=== PATIENT | female | born 1965 | race Caucasian/White ===

== ENCOUNTER → 2019-03-08 09:19 | Outpatient (CLI) | payer OTHER, SELFPAY ==
--- NOTE | 2019-03-08 | DI.MG.S_ITS ---
BILATERAL DIGITAL SCREENING MAMMOGRAM 3D/2D WITH CAD: 03/08/2019 CLINICAL: Routine screening. Family history of breast cancer. Comparison is made to exams dated: 09/28/2017 mammogram, 09/29/2016 mammogram, and 09/05/2015 mammogram - [facility]. There are scattered fibroglandular elements in both breasts. Current study was also evaluated with a Computer Aided Detection (CAD) system. No significant masses, calcifications, or other findings are seen in either breast. There has been no significant interval change. IMPRESSION: NEGATIVE There is no mammographic evidence of malignancy. A 1 year screening mammogram is recommended. This exam was interpreted at Station ID: [id number]. NOTE: For mammograms, a report in lay terms will be sent to the patient. Approximately 15% of breast malignancies will not be visualized mammographically. In the management of a palpable breast mass, a negative mammogram must not discourage biopsy of a clinically suspicious lesion. Electronically Signed By: Noris napoles/debora:03/08/2019 21:44:47 letter sent: Normal Exam ACR BI-RADS Category 1: Negative 3341F
== END ==
PROVIDERS: Visit Provider Nurse Practitioner Family
DX: Z12.31 Encounter for screening mammogram for malignant neoplasm of breast (principal); Z80.3 Family history of malignant neoplasm of breast
CPT/HCPCS: 77063; 77067

== ENCOUNTER → 2019-12-19 13:40 | Outpatient (ROUT) | payer OTHER, SELFPAY ==
[2019-12-19 14:15] LABS: Influenza A - CEPHEID Flu A NEGATIVE (NEGATIVE); Influenza B - CEPHEID Flu B NEGATIVE (NEGATIVE)
== END ==
PROVIDERS: Visit Provider Internal Medicine
DX: R05 Cough (principal); R53.83 Other fatigue; R51 Headache
CPT/HCPCS: 87502

== ENCOUNTER → 2020-05-25 08:01 | Outpatient (CLI) | payer OTHER, SELFPAY ==
--- NOTE | 2020-05-25 | DI.MG.S_ITS ---
BILATERAL DIGITAL SCREENING MAMMOGRAM 3D/2D WITH CAD: 05/25/2020 CLINICAL: Routine screening. Family history of breast cancer. Comparison is made to exams dated: 03/08/2019 mammogram - [facility], 09/28/2017 mammogram, and 09/29/2016 mammogram - [facility]. There are scattered fibroglandular elements in both breasts. Current study was also evaluated with a Computer Aided Detection (CAD) system. No significant masses, calcifications, or other findings are seen in either breast. There has been no significant interval change. IMPRESSION: NEGATIVE There is no mammographic evidence of malignancy. A 1 year screening mammogram is recommended. This exam was interpreted at Station ID: [id number]. NOTE: For mammograms, a report in lay terms will be sent to the patient. Approximately 15% of breast malignancies will not be visualized mammographically. In the management of a palpable breast mass, a negative mammogram must not discourage biopsy of a clinically suspicious lesion. Electronically Signed By: Roldan del valle/debora:05/27/2020 09:15:27 letter sent: Normal Exam ACR BI-RADS Category 1: Negative 3341F
== END ==
PROVIDERS: Referring Provider Internal Medicine; Visit Provider Internal Medicine
DX: Z12.31 Encounter for screening mammogram for malignant neoplasm of breast (principal); Z80.3 Family history of malignant neoplasm of breast
CPT/HCPCS: 77063; 77067

== ENCOUNTER → 2020-11-18 14:43 | Outpatient (CLI) | payer OTHER, SELFPAY ==
--- NOTE | 2020-11-18 14:45 | DI.US.S_ITS ---
PROCEDURE: US PELVIC COMPLETE INDICATIONS: PMB TECHNIQUE: Real-time scanning was performed of the pelvic organs, with image documentation. Additional endovaginal scanning was necessary due to incomplete visualization of the adnexal and endometrial structures by transabdominal scanning. COMPARISON: None. FINDINGS: Transabdominal scanning: Limited scanning through the kidneys shows no hydronephrosis. No pathologic free abdominal or pelvic fluid. Endovaginal scanning: Uterus: Uterus is normal in size at 7.6 x 3.9 x 5.2 cm. The endometrium measures 3.2 mm in combined thickness. Anterior submucosal fibroid measuring 13 mm and anterior intramural fibroid measuring 2.3 cm. Ovaries: Normal ovaries measuring 2.5 x 1.1 x 1.0 cm on the right and 2.8 x 1.0 x 1.7 cm on the left. No adnexal masses. IMPRESSION: 2 fibroids present, largest measuring up to 2.3 cm. Dictated by: Winston MILTON Interpreted: Sae Parr MD on 11/18/2020 at 16:01 Approved by: Sae Parr M.D. on 11/18/2020 at 17:06
== END ==
PROVIDERS: PCP Internal Medicine; Referring Provider Internal Medicine; Visit Provider Internal Medicine
DX: N95.0 Postmenopausal bleeding (principal); D25.1 Intramural leiomyoma of uterus; D25.0 Submucous leiomyoma of uterus
CPT/HCPCS: 76830; 76856

== ENCOUNTER → 2021-07-21 15:55 | Outpatient (CLI) | payer OTHER, SELFPAY ==
--- NOTE | 2021-07-21 15:56 | DI.MG.S_ITS ---
BILATERAL DIGITAL SCREENING MAMMOGRAM 3D/2D WITH CAD: 07/21/2021 CLINICAL: Routine screening. Family history of breast cancer. Comparison is made to exams dated: 05/25/2020 mammogram, 03/08/2019 mammogram - [facility], and 09/28/2017 mammogram - [facility]. There are scattered fibroglandular elements in both breasts. Current study was also evaluated with a Computer Aided Detection (CAD) system. No significant masses, calcifications, or other findings are seen in either breast. There has been no significant interval change. IMPRESSION: NEGATIVE There is no mammographic evidence of malignancy. A 1 year screening mammogram is recommended. This exam was interpreted at Station ID: [id number]. NOTE: For mammograms, a report in lay terms will be sent to the patient. Approximately 15% of breast malignancies will not be visualized mammographically. In the management of a palpable breast mass, a negative mammogram must not discourage biopsy of a clinically suspicious lesion. Electronically Signed By: Bahman Steinberg acr/debora:07/21/2021 18:02:49 letter sent: Normal Exam ACR BI-RADS Category 1: Negative 3341F
== END ==
PROVIDERS: PCP Internal Medicine; Referring Provider Internal Medicine; Visit Provider Internal Medicine
DX: Z12.31 Encounter for screening mammogram for malignant neoplasm of breast (principal); Z80.3 Family history of malignant neoplasm of breast
CPT/HCPCS: 77063; 77067

== ENCOUNTER → 2022-03-16 10:04 | Outpatient (CLI) | payer OTHER, SELFPAY ==
--- NOTE | 2022-03-16 | DI.RAD.S_ITS ---
PROCEDURE: XR CHEST 2V INDICATIONS: DYSPNEA ON EXERTION TECHNIQUE: 2 views of the chest were acquired. COMPARISON: None. FINDINGS: Surgical changes and devices: None. Lungs and pleura: Lungs are clear. No pleural effusions or pneumothorax. Mediastinum: Mediastinal contours are normal. Heart size is normal. Bones and chest wall: No suspicious bony abnormalities. Soft tissues appear unremarkable. IMPRESSION: No acute cardiopulmonary disease. Dictated by: Noris Saenz M.D. on 03/16/2022 at 11:17 Approved by: Noris Saenz M.D. on 03/16/2022 at 11:18
== END ==
PROVIDERS: PCP Internal Medicine; Referring Provider Internal Medicine; Visit Provider Internal Medicine
DX: R06.09 Other forms of dyspnea (principal)
CPT/HCPCS: 71046

== ENCOUNTER → 2022-05-07 07:59 | Outpatient (CLI) | payer OTHER, SELFPAY ==
[2022-05-07 08:39] LABS: COVID19 -Nasal RAPID Negative (Negative)
== END ==
PROVIDERS: PCP Internal Medicine; Referring Provider Internal Medicine; Visit Provider Internal Medicine
DX: Z20.822 Contact with and (suspected) exposure to COVID-19 (principal)
CPT/HCPCS: 87635; C9803

== ENCOUNTER → 2022-05-07 08:02 | Outpatient (CLI) | payer OTHER, SELFPAY ==
--- NOTE | 2022-05-15 08:45 | PM.PFT.1 ---
Pulmonary Function Test Referral & Results Date Patient Seen: 05/07/22 Requesting provider: Sara Patel Results: The spirometry demonstrates an FVC of 3.51 L which is 102% of predicted. The FEV1 was measured at 2.85 L which is 106% of predicted. The FEV1/FVC ratio was 81 which is 102% of predicted. Following the administration of bronchodilator there was no appreciable change to above normal numbers. Lung volumes show an SVC of 3.61 L which is 114% of predicted. The diffusing capacity was measured at 24.93 which is 102% of predicted. The maximum voluntary ventilation was normal Interpretation: This study demonstrates normal pulmonary function
== END ==
PROVIDERS: PCP Internal Medicine; Referring Provider Internal Medicine; Visit Provider Internal Medicine
DX: I08.1 Rheumatic disorders of both mitral and tricuspid valves (principal); R06.09 Other forms of dyspnea; R06.02 Shortness of breath; Z20.822 Contact with and (suspected) exposure to COVID-19
CPT/HCPCS: 87635; 93306; 94060; 94726; 94729; C9803

== ENCOUNTER → 2022-05-07 08:05 | Outpatient (CLI) | payer OTHER, SELFPAY ==
--- NOTE | 2022-05-07 | DI.ECHO.S_ITS ---
[place] [facility]---------+ [facility] +---------+ : : [address] : : : : [id number] : : : : Phone: [phone]+ Echocardiogram Report + + :Name: MCKAY MATTHEW Study Date: 05/07/2022 Height: 64 in : :[facility] ReadingLocation: Weight: 155 lb : : Gender: Female BSA: 1.8 m2 : :: 1965 Age: 56 yrs BP: 120/74 mmHg: :Reason For Study: SHORTNESS OF BREATH : :Ordering Physician: NICKI, : :DEBBIE Performed By: Crystal Smith : :Referring: DEBBIE CACERES : + + Interpretation Summary 1) Normal left ventricular thickness, size, wall motion, and systolic function (EF 60-65%). 2) Normal right ventricular size and function. 3) No significant valvular abnormalities. 4) The right ventricular systolic pressure is estimated to be at least 18 mmHg based on an estimated right atrial pressure of 3 mm Hg. 5) No prior Echo available for comparison. Procedure: A two-dimensional transthoracic echocardiogram with color flow and Doppler was performed. The study quality was technically adequate. There is no prior echocardiogram noted for this patient. The patient was in sinus bradycardia with heart rates between 47-65 bpm during the exam. Left Ventricle: The left ventricle is normal in size and wall thickness. The ejection fraction is estimated to be 60-65%. Left ventricular systolic function appears normal without focal wall motion abnormalities. Right Ventricle: The right ventricle is normal in size and function. Atria: The left atrium is moderately dilated. Right atrial size is normal. There is no Doppler evidence for an interatrial shunt. Mitral Valve: The mitral valve is normal in structure and function. There is mild mitral regurgitation. Aortic Valve: The aortic valve is trileaflet. The aortic valve opens well. There is no aortic valve stenosis. No aortic regurgitation is present. Tricuspid Valve: The tricuspid valve is normal in structure and function. There is mild tricuspid regurgitation. The right ventricular systolic pressure is estimated to be at least 18 mmHg based on an estimated right atrial pressure of 3 mm Hg. Pulmonic Valve: The pulmonic valve leaflets are thin and pliable; valve motion is normal. There is no pulmonic valvular regurgitation. Great Vessels: The aortic root is normal size. The dimensions of the ascending aorta are normal. The IVC is of normal diameter and collapses greater than 50% with a sniff. This suggests a low right atrial pressure of 3 mm Hg. Pericardium/ Pleura There is no pericardial effusion. There is no pleural effusion. MMode/2D Measurements & Calculations LVIDd: 4.4 cm LVOT diam: 2.0 cm LVIDs: 2.8 cm Ao root diam: 2.8 cm FS: 36.3 % asc Aorta Diam: 2.7 cm IVSd: 0.63 cm Ao Arch Diam (Prox Trans): 2.9 cm LVPWd: 0.60 cm LV flaherty. diameter/BSA (cm/m^2): 2.5 LV sys. diameter/BSA (cm/m^2): 1.6 LA A2 area: 19.3 cm2 RA long axis: 5.8 cm LA A4 area: 19.0 cm2 RA area: 16.7 cm2 LA length (vol): 5.1 cm RA vol: 41.2 ml LA vol: 61.2 ml RA : 23.5 ml/m2 LA vol index: 34.8 ml/m2 IVC diam: 1.9 cm RVD1 (basal): 3.5 cm RVD2 (mid): 3.1 cm TAPSE: 2.1 cm Doppler Measurements & Calculations Ao V2 max: 122.8 cm/sec LVOT Max Grant: 114.2 cm/sec Ao V2 mean: 84.2 cm/sec LV V1 max P.2 mmHg Ao max P.0 mmHg LV V1 VTI: 28.3 cm Ao mean P.3 mmHg LAURIE(I,D): 2.9 cm2 Ao V2 VTI: 31.6 cm LAURIE(V,D): 3.0 cm2 sev ratio: 0.90 LAURIE indexed to BSA (cm^2/m^2): 1.7 MV E max grant: 83.5 cm/sec TR max grant: 190.5 cm/sec MV A max grant: 72.8 cm/sec TR max P.5 mmHg MV E/A: 1.1 PA V2 max: 93.8 cm/sec Med Peak E' Grant: 11.5 cm/sec PA V2 mean: 63.9 cm/sec E/E' med: 7.3 PA mean P.8 mmHg Lat Peak E' Grant: 14.7 cm/sec PA pr(Accel): 17.3 mmHg E/E' lat: 5.7 E/e' average: 6.5 MV dec time: 0.17 sec SV(LVOT): 91.6 ml Reading Physician:01:57 PM
== END ==
PROVIDERS: PCP Internal Medicine; Referring Provider Internal Medicine; Visit Provider Internal Medicine
DX: I08.1 Rheumatic disorders of both mitral and tricuspid valves (principal); R06.09 Other forms of dyspnea; R06.02 Shortness of breath
CPT/HCPCS: 93306

== ENCOUNTER → 2022-06-24 15:24 | Outpatient (CLI) | payer OTHER, SELFPAY ==
--- NOTE | 2022-06-24 15:25 | DI.US.S_ITS ---
PROCEDURE: US THYROID INDICATIONS: ?NONTOXIC THYROID NODULE TECHNIQUE: Real-time scanning was performed of the thyroid gland, with image documentation. COMPARISON: None. FINDINGS: Right: Thyroid lobe measures 4.6 x 1.4 x 1.4 cm, and is homogeneous in echotexture. Left: Thyroid lobe measures 4.3 x 1.4 x 1.4 cm, and is homogenous in echotexture. Isthmus: 2 mm thick. Nodule number: 1 Location: Right superior/lateral Size: 0.3 x 0.3 x 0.3 cm. Composition: Solid Echogenicity: Hypoechoic Shape: wider than tall. Margins: Smooth Echogenic foci: None Total points: 4 ACR TI-RADS category: 4 IMPRESSION: T4 lesion in the right thyroid lobe. Given small size, no further follow-up is recommended. ACR TI-RADS definitions and recommendations: TI-RADS 1 (benign): 0 points. FNA not needed. TI-RADS 2 (not suspicious): 2 points. FNA not needed. TI-RADS 3 (mildly suspicious): 3 points. * FNA if 2.5 cm or larger, follow up if 1.5 cm or larger (at 1, 3, and 5 years). TI-RADS 4 (moderately suspicious): 4-6 points. * FNA if 1.5 cm or larger, follow up if 1 cm or larger (at 1, 2, 3, and 5 years). TI-RADS 5 (highly suspicious): 7 points or more. * FNA if 1 cm or larger, follow up if 0.5 cm or larger (every year for 5 years). Dictated by: Tamara Lovelace M.D. on 06/25/2022 at 12:37 Approved by: Tamara Lovelace M.D. on 06/25/2022 at 12:39
== END ==
PROVIDERS: PCP Internal Medicine; Referring Provider Internal Medicine; Visit Provider Internal Medicine
DX: E04.1 Nontoxic single thyroid nodule (principal)
CPT/HCPCS: 76536

== ENCOUNTER → 2022-08-31 07:25 | Outpatient (CLI) | payer OTHER, SELFPAY ==
--- NOTE | 2022-08-31 07:26 | DI.MG.S_ITS ---
BILATERAL DIGITAL SCREENING MAMMOGRAM 3D/2D WITH CAD: 08/31/2022 CLINICAL: Routine screening. Family history of breast cancer. Comparison is made to exams dated: 07/21/2021 mammogram, 05/25/2020 mammogram, and 03/08/2019 mammogram - [facility]. There are scattered areas of fibroglandular density in both breasts (category b / 25%-50% glandular tissue). Current study was also evaluated with a Computer Aided Detection (CAD) system. No significant masses, calcifications, or other findings are seen in either breast. There has been no significant interval change. IMPRESSION: NEGATIVE There is no mammographic evidence of malignancy. A 1 year screening mammogram is recommended. This exam was interpreted at Station ID: [id number]. NOTE: For mammograms, a report in lay terms will be sent to the patient. Approximately 15% of breast malignancies will not be visualized mammographically. In the management of a palpable breast mass, a negative mammogram must not discourage biopsy of a clinically suspicious lesion. Electronically Signed By: Roldan del valle/debora:08/31/2022 08:06:56 letter sent: Normal Exam ACR BI-RADS Category 1: Negative 3341F
== END ==
PROVIDERS: PCP Internal Medicine; Referring Provider Internal Medicine; Visit Provider Internal Medicine
DX: Z12.31 Encounter for screening mammogram for malignant neoplasm of breast (principal); Z80.3 Family history of malignant neoplasm of breast
CPT/HCPCS: 77063; 77067

== ENCOUNTER → 2023-09-21 15:41 | Outpatient (CLI) | payer OTHER, SELFPAY ==
--- NOTE | 2023-09-21 15:43 | DI.MG.S_ITS ---
BILATERAL DIGITAL SCREENING MAMMOGRAM 3D/2D WITH CAD: 09/21/2023 CLINICAL: Routine screening. Family history of breast cancer. Comparison is made to exams dated: 08/31/2022 mammogram, 07/21/2021 mammogram, 05/25/2020 mammogram, and 03/08/2019 mammogram - [facility]. There are scattered areas of fibroglandular density in both breasts (category b / 25%-50% glandular tissue). Current study was also evaluated with a Computer Aided Detection (CAD) system. No significant masses, calcifications, or other findings are seen in either breast. There has been no significant interval change. IMPRESSION: NEGATIVE There is no mammographic evidence of malignancy. A 1 year screening mammogram is recommended. Based on the Tyrer Cuzick model (a risk assessment model) the patient's lifetime risk is 19.3% and her 10 year risk is 6.5%. According to the ACR, ACS, and NCCN guidelines, an annual breast MRI exam along with mammogram is recommended if the patient's lifetime risk is 20% or greater. This exam was interpreted at Station ID: [id number]. NOTE: For mammograms, a report in lay terms will be sent to the patient. Approximately 15% of breast malignancies will not be visualized mammographically. In the management of a palpable breast mass, a negative mammogram must not discourage biopsy of a clinically suspicious lesion. Electronically Signed By: Ky hammond/debora:09/22/2023 09:47:27 letter sent: Normal Exam ACR BI-RADS Category 1: Negative 3341F
== END ==
PROVIDERS: Family Provider Internal Medicine; PCP Internal Medicine; Referring Provider Internal Medicine; Visit Provider Internal Medicine
DX: Z12.31 Encounter for screening mammogram for malignant neoplasm of breast (principal); Z80.3 Family history of malignant neoplasm of breast
CPT/HCPCS: 77063; 77067

== ENCOUNTER 2023-11-04 07:30 | Outpatient (RCR) | payer OTHER, SELFPAY ==
--- NOTE | 2023-08-09 10:04 | OT.OP.EVAL ---
Visit Care Team Role Provider Type HANK Marsh Attending Provider Advanced Image Scientist Family Provider Primary Care Provider Referring Provider Specialty: Family Practice Address: [address] [place] [address], [facility], [place], [address] Email: [email or web address] Occupational Therapy Initial Evaluation OT Outpatient Adult Evaluation Start: 08/09/23 08:18 Freq: Status: Active Protocol: Document 08/09/23 08:18 AMS (Rec: 08/09/23 08:26 AMS [id number]) General Information - Adult Plan of Care Dates 08/09/23 - 10/04/23 Insurance Information [facility]; pre- auth required all visits Visit Start Time 07:30 Visit Stop Time 08:15 Total Visit Minutes 45 Treatment Setting Outpatient Care Note Type Initial Evaluation Identification Confirmed Yes Identification Confirmed By Self Goals Treatment Initiated HEP. Short Term Goals 1. Woody will be able to return to familiar exercise routine d/t increases in L UE strength: 1a. MMT 5/5 L sh flexion 1b. MMT 5/5 L sh abduction 1c. MMT 5/5 L sh extension 1d. MMT 5/5 L elbow flexion 1e. MMT 5/5 L elbow extension [employer]cer Goals 1. Woody will be modified independent with execution of home exercise program utilizing provided written and visual instructions as needed . 2. Woody will present with increased ability to participate in meaningful activities in a variety of environments as evidenced by the followina. Woody will indicate 1 or less on the Pain Assessment Grid relative to the L shoulder. 2b. Woody will obtain a QuickDASH UE Outcome Measure Score of 10.00 or less. Assessment/Plan Treatment Assessment Woody is a 58 year-old right hand dominant female referred to outpatient OT secondary to left shoulder pain and right trigger finger. Medical history is significant for back/neck pain w/ diskectomy 1995. 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 Woody reported having outpatient PT in 2014 to address lower back, left shoulder and neck pain/ discomfort. Most recent injury to L sh occurred while sitting on bench w/ subsequent loss of control of DB positioned L hand which led to pulling back of UE ( uncontrolled fly movement pattern demonstrated w/ trunk ext); she has been taking it easy and using 3-4# DB for strengthening of L UE vs 10-12 # DB being used for strengthening of the R UE. Current exercise program includes bicep curls (forearm supination), bent over rows, tricep extension w/ wrist in neutral and skull crushers seated; Woody also utilizes 3 -4# DB when walking and incorporates pilates and engages in regular core routine given h/o back pain/ discomfort. She also executes neck stretches as previously instructed by outpatient PT. She tries to sleep on R side; however, frequently wakes up in sidelying on L. Indication of 3 out of 10 on Pain Assessment Grid relative to L shoulder; indication of 0 out of 10 on Hand/Wrist Pain Assessment Grid relative to R 4th digit. QuickDASH UE Outcome Measure Score = 18.18; QuickDASH UE Work Module Score = 18.75. (+) locking of R 4th digit into flexion w/ need for manual release; denial of wearing of splint and/or treatment for R 4th finger. 135 degrees active pain-free L sh flex vs 160 degrees active pain-free R sh flex; 130 degrees active pain-free L sh abd vs 165 degrees active pain -free R sh abd. 60 degrees active pain-free L ER vs 80 degrees active pain-free R ER. 60 degrees active pain-free L sh ext vs 80 degrees active pain-free R sh ext. Active elbow flex/ext and forearm supination/pronation and wrist flex/ext/RD/UD range of motion pain-free bilaterally and WNL. 4/5 MMT L sh flex vs 5/5 MMT R sh flex; 4/5 MMT L sh abd vs 5/5 MMT R sh abd; 5/ 5 MMT L ER vs 5/5 MMT R ER; 5/ 5 MMT L sh IR vs 5/5 MMT R sh IR; 4+/5 MMT L sh ext vs 5/5 MMT R sh ext; 5/5 MMT L sh add vs 5/5 MMT R sh add. 4/5 MMT L elbow flex vs 5/5 MMT R elbow flex. 4+/5 MMT L elbow ext 5/5 MMT R elbow ext. Woody would likely benefit from outpatient OT to address L UE weakness, L UE pain/ discomfort, development of HEP , discussion re: conservative measures of treatment for R trigger finger (4th digit), and to support her ability to participate in meaningful activities in a variety of environments, including exercise routine. Home Exercise Program 08/09/23 = Instructed in L UE ROM stretch w/ focus on L sh flex and L sh abd utilizing wall; recommendation for 20 to 30 sec hold. Also instructed in modified child pose w/ TT for sh flex ROM and in door stretch for opening up of chest/anterior L sh. Provided w/ TB #3 for standing rows and for bilateral sh ext/row w/ forearm supination to increase targeting of bilateral triceps. Rec 3 x 10 every other day and/or 3 x per week. Instructed in wrapping TB around door knob w/ door closed and w/ option for knotting TB for hand positioning. Length of treatment (weeks) 8 Plan of Care Start Date 08/09/23 Plan of Care End Date 10/04/23 Treatment Frequency Once a Week Therapeutic Contents Active Range of Motion, Adaptive Equipment Education, Client Education,Functional Activities,Home Exercise Program,Joint Protection, Manual Therapy,Education, Neurodevelopment Treatment, Neuromuscular Re-Education, Self-Care,Stretching/ Flexibility Activities, Therapeutic Activities, Therapeutic Exercises, Modalities,Sensory Re- education Modalities As Needed,As Prescribed Additional Types of Modalities Heat/Ice/Contrast bath/ Paraffin/Ultrasound/E-stim
--- NOTE | 2023-08-30 09:41 | OT.OP.TRT ---
Visit Care Team Role Provider Type HANK Marsh Attending Provider Advanced Playroom Attendant Family Provider Primary Care Provider Referring Provider Specialty: Family Practice Address: [address] [place] [address], [facility], [place], [address] Email: [email or web address] Occupational Therapy Treatment Note OT Outpatient Treatment Note - Adult Start: 08/09/23 08:18 Freq: Status: Active Protocol: Document 08/30/23 09:25 AMS (Rec: 08/30/23 09:40 [facility] [id number]) OT Outpatient Adult Treatment Note Session Time Visit Start Time 07:35 Visit Stop Time 08:15 Total Visit Minutes 40 Visit Information Plan of Care Dates 08/09/23 - 10/04/23 Insurance Information [facility]; pre- auth required all visits Setting Treatment Setting Outpatient Care Visit Type Note Type Treatment Note General Information General Information Woody is a 58 year-old right hand dominant female referred to outpatient OT secondary to left shoulder pain and right trigger finger. Medical history is significant for back/neck pain w/ diskectomy 1995. Woody works full-time in [employer] ([employer]) actively utilizing an ergonomic workstation w/ regular movement breaks. Woody reported having outpatient PT in 2014 to address lower back, left shoulder and neck pain/ discomfort. Most recent injury to L sh occurred while sitting on bench w/ subsequent loss of control of DB positioned L hand which led to pulling back of UE (uncontrolled fly movement pattern demonstrated w/ trunk ext); she has been taking it easy and using 3-4# DB for strengthening of L UE vs 10-12# DB being used for strengthening of the R UE. - Subjective Identification Type Name Identification Reconciled With Medical Record Observations Report of an 'ache' moving more distally to L shoulder. Patient/Caregiver Compliance with Home Good Exercise Program - Objective Objective Measurements Please refer to below for progress towards meeting established OT goals: Short Term Goals 1. Woody will be able to return to familiar exercise routine d/t increases in L UE strength: 1a. MMT 5/5 L sh flexion 1b. MMT 5/5 L sh abduction 1c. MMT 5/5 L sh extension 1d. MMT 5/5 L elbow flexion 1e. MMT 5/5 L elbow extension Alf Goals 1. Woody will be modified independent with execution of home exercise program utilizing provided written and visual instructions as needed . 2. Woody will present with increased ability to participate in meaningful activities in a variety of environments as evidenced by the followina. Woody will indicate 1 or less on the Pain Assessment Grid relative to the L shoulder. 2b. Woody will obtain a QuickDASH UE Outcome Measure Score of 10.00 or less. - Exercises 4 Descriptor UEB. x 10 minutes. Seated. Forwards direction. 3 Descriptor Hand ROM/glides. Hook fist. x 20. Passive hook fist. 20 sec hold . x 2. Bilateral. 2 Descriptor UE strengthening. 2# DB diagonal. 3 x 10. 1 Descriptor L UE ROM Modified child's pose. TT. Seated. 20 sec. x 1. Modified crescent jose. TT. Seated. 20 sec. x 2. Modified threading the needle stretch. TT. Seated. 20 sec. x 1. 'T' supine w/ bilateral knee rock. Supine. 20 sec. x 1 each side. - Assessment Assessment of Improvement Palmar fascia thickening noted of R palm/ulnar (between prox and distal palmar creases); crepitus and and decreased smoothness into flex at the 4th PIPJ/lateral. (+) response to gentle massage. Rec massage to thickening palmar surface/proximal to the PIPJ of 4th digit. Rec regular hook fist via passive/active ROM via gentle ROM w/ avoiding of locking as able. (-) reproduction of locking of 4th digit into flexion in session . (-) wearing of brace; symptoms of 4th digit have been presenting for approx a year; thus, less conservative measures to treat locking into flexion may also need to be explored. Progressed shoulder ROM/strengthening. Good ROM observed w/ no nonverbal signs of pain/discomfort w/ L sh ROM in supine w/ 'Y' or bilateral sh flex. Overall, good session. Woody would likely benefit from outpatient OT to address L UE weakness, L UE pain/ discomfort, development of HEP , discussion re: conservative measures of treatment for R trigger finger (4th digit), and to support her ability to participate in meaningful activities in a variety of environments, including exercise routine. Home Exercise Program 08/30/23 = Massage to lateral surface of 4th R digit (PIPJ - > MPJ) and palmar surface ( site of fascia thickening). Active and passive hook fist ( gentle vs forceful) w/ avoidance of locking as able into flexion. 08/09/23 = Instructed in L UE ROM stretch w/ focus on L sh flex and L sh abd utilizing wall; recommendation for 20 to 30 sec hold. Also instructed in modified child pose w/ TT for sh flex ROM and in door stretch for opening up of chest/anterior L sh. Provided w/ TB #3 for standing rows and for bilateral sh ext/row w/ forearm supination to increase targeting of bilateral triceps. Rec 3 x 10 every other day and/or 3 x per week. Instructed in wrapping TB around door knob w/ door closed and w/ option for knotting TB for hand positioning. - Plan Therapy Recommendations Continue with Current Program, Advance per Rehabilitation Protocol
--- NOTE | 2023-09-28 13:33 | OT.OP.TRT ---
Visit Care Team Role Provider Type HANK Marsh Attending Provider Advanced Partition Making Machine Operator Family Provider Primary Care Provider Referring Provider Specialty: Family Practice Address: [address] [place] [address], [facility], [place], [address] Email: [email or web address] Occupational Therapy Treatment Note OT Outpatient Treatment Note - Adult Start: 08/09/23 08:18 Freq: Status: Active Protocol: Document 09/28/23 13:19 AMS (Rec: 09/28/23 13:32 [facility] [id number]) OT Outpatient Adult Treatment Note Session Time Visit Start Time 07:37 Visit Stop Time 08:15 Total Visit Minutes 37 Visit Information Plan of Care Dates 08/09/23 - 10/04/23 Insurance Information [facility]; pre- auth required all visits Setting Treatment Setting Outpatient Care Visit Type Note Type Treatment Note General Information General Information Woody is a 58 year-old right hand dominant female referred to outpatient OT secondary to left shoulder pain and right trigger finger. Medical history is significant for back/neck pain w/ diskectomy 1995. Woody works full-time in [employer] ([employer]) actively utilizing an ergonomic workstation w/ regular movement breaks. Woody reported having outpatient PT in 2014 to address lower back, left shoulder and neck pain/ discomfort. Most recent injury to L sh occurred while sitting on bench w/ subsequent loss of control of DB positioned L hand which led to pulling back of UE (uncontrolled fly movement pattern demonstrated w/ trunk ext); she has been taking it easy and using 3-4# DB for strengthening of L UE vs 10-12# DB being used for strengthening of the R UE. - Subjective Identification Type Name Identification Reconciled With Medical Record Observations (+) compliance w/ home exercises; report of use of 4# DB w/ bicep/tricep strengthening. Executing massage to palm of R hand; 4th digit cont to reportedly still get stuck in flexion; passive and active hook/tendon glide has been helping other fingers w/ noted decreased stiffness. Patient/Caregiver Compliance with Home Good Exercise Program - Objective Objective Measurements Please refer to below for progress towards meeting established OT goals: Short Term Goals 1. Woody will be able to return to familiar exercise routine d/t increases in L UE strength: 1a. MMT 5/5 L sh flexion 1b. MMT 5/5 L sh abduction 1c. MMT 5/5 L sh extension 1d. MMT 5/5 L elbow flexion 1e. MMT 5/5 L elbow extension Longterm Goals 1. Woody will be modified independent with execution of home exercise program utilizing provided written and visual instructions as needed . 2. Woody will present with increased ability to participate in meaningful activities in a variety of environments as evidenced by the followina. Woody will indicate 1 or less on the Pain Assessment Grid relative to the L shoulder. 2b. Woody will obtain a QuickDASH UE Outcome Measure Score of 10.00 or less. - Exercises 4 Descriptor UEB. x 10 minutes. Seated. Forwards direction. 3 Descriptor Hand ROM/glides. Hook fist. x 20. Passive hook fist. 20 sec hold . x 2. Bilateral. 2 Descriptor UE strengthening. Sh flex. Thumb up. 2#DB. 3 x 15. Sh hor abd. Forearm pronation. 2# DB. 3 x 15. Sh ext. Forearm supination. 2# DB. 3 x 15. 1 Descriptor L UE ROM L sh door way stretches. Use of door frame. x 20 sec hold each passive stretch. Sh ext. Sh hor abd. Sh hor abd 90/elbow 90 degrees. L sh abd sidelying. x 20 sec hold. Cresent jose modified supine. x 20 hold each side. Modified child's pose. TT. Seated. 20 sec. x 1. Modified crescent jose. TT. Seated. 20 sec. x 2. Modified threading the needle stretch. TT. Seated. 20 sec. x 1. 'T' supine w/ bilateral knee rock. Supine. 20 sec. x 1 each side. - Assessment Assessment of Improvement Palmar fascia thickening noted of R palm/ulnar (between prox and distal palmar creases); crepitus and and decreased smoothness into flex at the 4th PIPJ/lateral. (+) carry- over of home recommendations w / noted decreased stiffness of other digits w/ tendon glides (w/ focus on passive and active hook fist); however, cont intermittent locking of 4th digit. Advanced L sh strengthening exercises; (+) carry-over of UE stretches w/ use of 4# DB w/ bicep curls and tricep kickbacks. Overall, good session. Woody would likely benefit from outpatient OT to address L UE weakness, L UE pain/ discomfort, development of HEP , discussion re: conservative measures of treatment for R trigger finger (4th digit), and to support her ability to participate in meaningful activities in a variety of environments, including exercise routine. Home Exercise Program 08/30/23 = Massage to lateral surface of 4th R digit (PIPJ - > MPJ) and palmar surface ( site of fascia thickening). Active and passive hook fist ( gentle vs forceful) w/ avoidance of locking as able into flexion. 08/09/23 = Instructed in L UE ROM stretch w/ focus on L sh flex and L sh abd utilizing wall; recommendation for 20 to 30 sec hold. Also instructed in modified child pose w/ TT for sh flex ROM and in door stretch for opening up of chest/anterior L sh. Provided w/ TB #3 for standing rows and for bilateral sh ext/row w/ forearm supination to increase targeting of bilateral triceps. Rec 3 x 10 every other day and/or 3 x per week. Instructed in wrapping TB around door knob w/ door closed and w/ option for knotting TB for hand positioning. - Plan Therapy Recommendations Continue with Current Program, Advance per Rehabilitation Protocol
--- NOTE | 2023-10-04 11:45 | OT.OPPOC ---
Physical, Occupational & Speech Therapy At [facility] Woody Sharpe [id number] 1965 Visit Care Team Role Provider Type HANK Marsh Attending Provider Advanced Sales Marketing Coordinator Family Provider Primary Care Provider Referring Provider Address: [address] [place] [address], [id number] Occupational Therapy Plan of Care OT Outpatient Adult Evaluation Start: 08/09/23 08:18 Freq: Status: Active Protocol: Document 08/09/23 08:18 AMS (Rec: 08/09/23 08:26 AMS [id number]) General Information - Adult Visit Information Plan of Care Dates 08/09/23 - 10/04/23 Insurance Information [employer]; pre- auth required all visits Session Time Visit Start Time 07:30 Visit Stop Time 08:15 Total Visit Minutes 45 Setting Treatment Setting Outpatient Care Visit Type Note Type Initial Evaluation Identification Identification Confirmed Yes Identification Confirmed By Self Goals Treatment Treatment Initiated HEP. Short Term Goals Short Term Goals 1. Woody will be able to return to familiar exercise routine d/t increases in L UE strength: 1a. MMT 5/5 L sh flexion 1b. MMT 5/5 L sh abduction 1c. MMT 5/5 L sh extension 1d. MMT 5/5 L elbow flexion 1e. MMT 5/5 L elbow extension Guard Range Goals Penitentiary Goals 1. Woody will be modified independent with execution of home exercise program utilizing provided written and visual instructions as needed . 2. Woody will present with increased ability to participate in meaningful activities in a variety of environments as evidenced by the followina. Woody will indicate 1 or less on the Pain Assessment Grid relative to the L shoulder. 2b. Woody will obtain a QuickDASH UE Outcome Measure Score of 10.00 or less. Assessment/Plan Assessment Treatment Assessment Woody is a 58 year-old right hand dominant female referred to outpatient OT secondary to left shoulder pain and right trigger finger. Medical history is significant for back/neck pain w/ diskectomy 1995. Woody works full-time in [employer] ([employer]) actively utilizing an ergonomic workstation w/ regular movement breaks. Woody reported having outpatient PT in 2014 to address lower back, left shoulder and neck pain/ discomfort. Most recent injury to L sh occurred while sitting on bench w/ subsequent loss of control of DB positioned L hand which led to pulling back of UE ( uncontrolled fly movement pattern demonstrated w/ trunk ext); she has been taking it easy and using 3-4# DB for strengthening of L UE vs 10-12 # DB being used for strengthening of the R UE. Current exercise program includes bicep curls (forearm supination), bent over rows, tricep extension w/ wrist in neutral and skull crushers seated; Woody also utilizes 3 -4# DB when walking and incorporates pilates and engages in regular core routine given h/o back pain/ discomfort. She also executes neck stretches as previously instructed by outpatient PT. She tries to sleep on R side; however, frequently wakes up in sidelying on L. Indication of 3 out of 10 on Pain Assessment Grid relative to L shoulder; indication of 0 out of 10 on Hand/Wrist Pain Assessment Grid relative to R 4th digit. QuickDASH UE Outcome Measure Score = 18.18; QuickDASH UE Work Module Score = 18.75. (+) locking of R 4th digit into flexion w/ need for manual release; denial of wearing of splint and/or treatment for R 4th finger. 135 degrees active pain-free L sh flex vs 160 degrees active pain-free R sh flex; 130 degrees active pain-free L sh abd vs 165 degrees active pain -free R sh abd. 60 degrees active pain-free L ER vs 80 degrees active pain-free R ER. 60 degrees active pain-free L sh ext vs 80 degrees active pain-free R sh ext. Active elbow flex/ext and forearm supination/pronation and wrist flex/ext/RD/UD range of motion pain-free bilaterally and WNL. 4/5 MMT L sh flex vs 5/5 MMT R sh flex; 4/5 MMT L sh abd vs 5/5 MMT R sh abd; 5/ 5 MMT L ER vs 5/5 MMT R ER; 5/ 5 MMT L sh IR vs 5/5 MMT R sh IR; 4+/5 MMT L sh ext vs 5/5 MMT R sh ext; 5/5 MMT L sh add vs 5/5 MMT R sh add. 4/5 MMT L elbow flex vs 5/5 MMT R elbow flex. 4+/5 MMT L elbow ext 5/5 MMT R elbow ext. Woody would likely benefit from outpatient OT to address L UE weakness, L UE pain/ discomfort, development of HEP , discussion re: conservative measures of treatment for R trigger finger (4th digit), and to support her ability to participate in meaningful activities in a variety of environments, including exercise routine. Home Exercise Program 08/09/23 = Instructed in L UE ROM stretch w/ focus on L sh flex and L sh abd utilizing wall; recommendation for 20 to 30 sec hold. Also instructed in modified child pose w/ TT for sh flex ROM and in door stretch for opening up of chest/anterior L sh. Provided w/ TB #3 for standing rows and for bilateral sh ext/row w/ forearm supination to increase targeting of bilateral triceps. Rec 3 x 10 every other day and/or 3 x per week. Instructed in wrapping TB around door knob w/ door closed and w/ option for knotting TB for hand positioning. Plan Length of treatment (weeks) 8 Plan of Care Start Date 08/09/23 Plan of Care End Date 10/04/23 Treatment Frequency Once a Week Therapeutic Contents Active Range of Motion, Adaptive Equipment Education, Client Education,Functional Activities,Home Exercise Program,Joint Protection, Manual Therapy,Education, Neurodevelopment Treatment, Neuromuscular Re-Education, Self-Care,Stretching/ Flexibility Activities, Therapeutic Activities, Therapeutic Exercises, Modalities,Sensory Re- education Modalities As Needed,As Prescribed Additional Types of Modalities Heat/Ice/Contrast bath/ Paraffin/Ultrasound/E-stim Functional Wrist/Hand Scan Hand Side Sensory Assessment Sensory Profile2 OT Outpatient Treatment Note - Adult Start: 08/09/23 08:18 Freq: Status: Active Protocol: Document 10/04/23 11:35 [facility] (Rec: 10/04/23 11:45 [facility] [id number]) OT Outpatient Adult Treatment Note Session Time Visit Start Time 07:45 Visit Stop Time 08:15 Total Visit Minutes 30 Visit Information Plan of Care Dates 10/04/23 - 11/15/23 Insurance Information [employer]; pre- auth required all visits Setting Treatment Setting Outpatient Care Visit Type Note Type Progress Note General Information General Information Woody is a 58 year-old right hand dominant female referred to outpatient OT secondary to left shoulder pain and right trigger finger. Medical history is significant for back/neck pain w/ diskectomy 1995. Woody works full-time in [employer]) actively utilizing an ergonomic workstation w/ regular movement breaks. Woody reported having outpatient PT in 2014 to address lower back, left shoulder and neck pain/ discomfort. Most recent injury to L sh occurred while sitting on bench w/ subsequent loss of control of DB positioned L hand which led to pulling back of UE (uncontrolled fly movement pattern demonstrated w/ trunk ext); she has been taking it easy and using 3-4# DB for strengthening of L UE vs 10-12# DB being used for strengthening of the R UE. - Subjective Identification Type Name Identification Reconciled With Medical Record Observations (+) compliance w/ home exercises; report of use of 4# DB w/ bicep/tricep strengthening. Executing massage to palm of R hand; 4th digit cont to reportedly still get stuck in flexion; passive and active hook/tendon glide has been helping other fingers w/ noted decreased stiffness. Patient/Caregiver Compliance with Home Good Exercise Program - Objective Objective Measurements Please refer to below for progress towards meeting established OT goals: Short Term Goals 1. Woody will be able to return to familiar exercise routine d/t increases in L UE strength: 1a. MMT 5/5 L sh flexion 1b. MMT 5/5 L sh abduction 1c. MMT 5/5 L sh extension 1d. MMT 5/5 L elbow flexion 1e. MMT 5/5 L elbow extension Guard Range Goals 1. Woody will be modified independent with execution of home exercise program utilizing provided written and visual instructions as needed . 2. Woody will present with increased ability to participate in meaningful activities in a variety of environments as evidenced by the followina. Woody will indicate 1 or less on the Pain Assessment Grid relative to the L shoulder. 2b. Woody will obtain a QuickDASH UE Outcome Measure Score of 10.00 or less. - Exercises 4 Descriptor UEB. x 10 minutes. Seated. Forwards direction. 2 Descriptor UE strengthening. Sh flex. Trunk flex. Thumb up. 2#DB. 3 x 15. Sh hor abd. Trunk flex. Forearm pronation. 2# DB. 3 x 15. Sh hor abd. Trunk flex. Thumb up. 2# DB. 3 x 15. Sh ext. Trunk flex. Forearm supination. 2# DB. 2 x 15. Forearm pronation. 2# DB. 1 x 15. Chest press/sh horizontal abd. Seated. 2# DB. 3 x 15. 1 Descriptor L UE ROM Blake pose. Cresent jose modified supine. x 20 hold each side. N/A 10/04/[address]. Use of door frame. x 20 sec hold each passive stretch. Sh ext. Sh hor abd. Sh hor abd 90/elbow 90 degrees. L sh abd sidelying. x 20 sec hold. Modified threading the needle stretch. TT. Seated. 20 sec. x 1. 'T' supine w/ bilateral knee rock. Supine. 20 sec. x 1 each side. - Assessment Assessment of Improvement Woody has made some progress with outpatient OT; therapist has been able to advance exercises being completed in treatment session and Woody has returned to use of 4# DB bicep curls and tricep kickbacks with the L UE. She does have some palmar fascia thickening noted of R palm/ slightly ulnar regions ( between prox and distal palmar creases) w/ crepitus and decreased smoothness into flex of the 4th PIPJ/lateral. She has reported some decreased stiffness of other digits w/ tendon glides (w/ focus on passive and active hook fist); however, she continues to have intermittent locking of the 4th digit into flexion. She may benefit from referral to UE junk removal specialist to explore less conservative measures of treatment and/or be evaluated by CHT to determine if custom orthotic may be beneficial. Woody would likely continue to benefit from outpatient OT to address L UE weakness, L UE pain/discomfort, development of HEP, discussion re: conservative measures of treatment for intermittent locking of 4th digit into flexion, and to support her ability to participate in meaningful activities in a variety of environments, including exercise routine. Home Exercise Program 08/30/23 = Massage to lateral surface of 4th R digit (PIPJ - > MPJ) and palmar surface ( site of fascia thickening). Active and passive hook fist ( gentle vs forceful) w/ avoidance of locking as able into flexion. 08/09/23 = Instructed in L UE ROM stretch w/ focus on L sh flex and L sh abd utilizing wall; recommendation for 20 to 30 sec hold. Also instructed in modified child pose w/ TT for sh flex ROM and in door stretch for opening up of chest/anterior L sh. Provided w/ TB #3 for standing rows and for bilateral sh ext/row w/ forearm supination to increase targeting of bilateral triceps. Rec 3 x 10 every other day and/or 3 x per week. Instructed in wrapping TB around door knob w/ door closed and w/ option for knotting TB for hand positioning. - Plan Therapy Recommendations Continue with Current Program, Advance per Rehabilitation Protocol Comment 6 weeks Frequency of Treatment Once a Week Therapeutic Contents Active Range of Motion, Adaptive Equipment Education, Functional Activities,Home Exercise Program,Joint Protection,Manual Therapy, Education,Neurodevelopment Treatment,Neuromuscular Re- Education,Self-Care,Stretching /Flexibility Activities, Therapeutic Activities, Therapeutic Exercises, Modalities Modalities As Needed,As Prescribed Additional Types of Modalities Heat/Ice/Contrast baths/ Ultrasound/Paraffin bath Electronically Signed by: Kayla Moyer OT 10/04/23 9607 If you are in agreement with this Plan of Care, please return a signed and dated copy. I have reviewed this Plan of Care and certify that the skilled therapy services above are required to meet the patient?s needs. Physician Signature Date Printed Name and Credentials Clinical Instructor Signature Printed Name and Credentials
--- NOTE | 2023-10-11 08:41 | OT.OP.TRT ---
Visit Care Team Role Provider Type HANK Marsh Attending Provider Advanced Loans Consultant Family Provider Primary Care Provider Referring Provider Specialty: Family Practice Address: [address] [place] [address], [facility], [place], [address] Email: [email or web address] Occupational Therapy Treatment Note OT Outpatient Treatment Note - Adult Start: 08/09/23 08:18 Freq: Status: Active Protocol: Document 10/11/23 08:28 AMS (Rec: 10/11/23 08:40 [facility] [id number]) OT Outpatient Adult Treatment Note Session Time Visit Start Time 07:40 Visit Stop Time 08:15 Total Visit Minutes 35 Visit Information Plan of Care Dates 10/04/23 - 11/15/23 Insurance Information [employer] [facility]; pre- auth required all visits Setting Treatment Setting Outpatient Care Visit Type Note Type Treatment Note General Information General Information Woody is a 58 year-old right hand dominant female referred to outpatient OT secondary to left shoulder pain and right trigger finger. Medical history is significant for back/neck pain w/ diskectomy 1995. Woody works full-time in [employer]) actively utilizing an ergonomic workstation w/ regular movement breaks. Woody reported having outpatient PT in 2014 to address lower back, left shoulder and neck pain/ discomfort. Most recent injury to L sh occurred while sitting on bench w/ subsequent loss of control of DB positioned L hand which led to pulling back of UE (uncontrolled fly movement pattern demonstrated w/ trunk ext); she has been taking it easy and using 3-4# DB for strengthening of L UE vs 10-12# DB being used for strengthening of the R UE. - Subjective Identification Type Name Identification Reconciled With Medical Record Observations (+) compliance w/ home exercises; report of use of 5# DB w/ UB strengthening w/ use of home gym set-up which includes bench. Executing massage to palm of R hand; 4th digit cont to reportedly still get stuck in flexion when completing repetitive gripping actions (picking things up/holding pen at work, gardening). Passive and active hook/tendon glide has been helping other fingers w/ noted decreased stiffness. Patient/Caregiver Compliance with Home Good Exercise Program - Objective Objective Measurements Please refer to below for progress towards meeting established OT goals: Short Term Goals 1. Woody will be able to return to familiar exercise routine d/t increases in L UE strength: 1a. MMT 5/5 L sh flexion 1b. MMT 5/5 L sh abduction 1c. MMT 5/5 L sh extension 1d. MMT 5/5 L elbow flexion 1e. MMT 5/5 L elbow extension [facility] Goals 1. Woody will be modified independent with execution of home exercise program utilizing provided written and visual instructions as needed . 2. Woody will present with increased ability to participate in meaningful activities in a variety of environments as evidenced by the followina. Woody will indicate 1 or less on the Pain Assessment Grid relative to the L shoulder. 2b. Woody will obtain a QuickDASH UE Outcome Measure Score of 10.00 or less. - Exercises 4 Descriptor UEB. x 10 minutes. Seated. Forwards direction. 2 Descriptor UE strengthening. Sh flex. Trunk flex. Thumb up. 2#DB. 3 x 15. Sh hor abd. Trunk flex. Forearm pronation. 2# DB. 3 x 15. Sh ext. Trunk flex. Forearm supination. 2# DB. 2 x 15. Forearm pronation. 2# DB. 1 x 15. Pec press/B sh horizontal abd. Seated. 2# DB. 3 x 15. Bicep curls combined w/ sh press (elbows in/forearms in neutral). 5# DB. 3 x 15. Completed in standing. N/A 10/11/23 Sh hor abd. Trunk flex. Thumb up. 2# DB. 3 x 15. 1 Descriptor L UE ROM Blake pose. Cresent jose modified supine. x 20 hold each side. N/A 10/04/[address] Use of door frame. x 20 sec hold each passive stretch. Sh ext. Sh hor abd. Sh hor abd 90/elbow 90 degrees. L sh abd sidelying. x 20 sec hold. Modified threading the needle stretch. TT. Seated. 20 sec. x 1. 'T' supine w/ bilateral knee rock. Supine. 20 sec. x 1 each side. - Assessment Assessment of Improvement Began to use 5# DB in home gym set-up which includes bench. Upgraded UE strengthening exercises; instructed in combo of bicep curls and sh press. However, frequently does DB press work w/ use of bench; thus, this will likely not be the best option given her exercise routine. Recommend discussing/reviewing her bench strengthening exercises. May want to consider instruction in TB lat pulldown given use of home gym for UB strengthening (as an addition to standing rows/B sh ext w/ tricep kickbacks previously instructed in). Overall, good session. She does have some palmar fascia thickening noted of R palm/slightly ulnar regions ( between prox and distal palmar creases) w/ crepitus and decreased smoothness into flex of the 4th PIPJ/lateral w/ intermittent locking of the 4th digit into flexion w/ repetitive gripping activities and or/ w/ sustained core measures abstractor w/ use of pen at work. Woody may benefit from referral to UE chargeback specialist to explore less conservative measures of treatment and/or be evaluated by CHT to determine if custom orthotic may be beneficial. Woody would likely continue to benefit from outpatient OT to address L UE weakness, L UE pain/discomfort, development of HEP, discussion re: conservative measures of treatment for intermittent locking of 4th digit into flexion, and to support her ability to participate in meaningful activities in a variety of environments, including exercise routine. Home Exercise Program 08/30/23 = Massage to lateral surface of 4th R digit (PIPJ - > MPJ) and palmar surface ( site of fascia thickening). Active and passive hook fist ( gentle vs forceful) w/ avoidance of locking as able into flexion. 08/09/23 = Instructed in L UE ROM stretch w/ focus on L sh flex and L sh abd utilizing wall; recommendation for 20 to 30 sec hold. Also instructed in modified child pose w/ TT for sh flex ROM and in door stretch for opening up of chest/anterior L sh. Provided w/ TB #3 for standing rows and for bilateral sh ext/row w/ forearm supination to increase targeting of bilateral triceps. Rec 3 x 10 every other day and/or 3 x per week. Instructed in wrapping TB around door knob w/ door closed and w/ option for knotting TB for hand positioning. - Plan Therapy Recommendations Continue with Current Program, Advance per Rehabilitation Protocol
--- NOTE | 2023-11-04 08:38 | OT.OP.DC ---
Visit Care Team Role Provider Type HANK Marsh Attending Provider [employer] Consultant Family Provider Primary Care Provider Referring Provider Address: [address] [place] [address], [facility], [place], [address] Email: [email or web address] Outpatient OT Outpatient Adult Evaluation Start: 08/09/23 08:18 Freq: Status: Active Protocol: Document 08/09/23 08:18 AMS (Rec: 08/09/23 08:26 AMS [id number]) General Information - Adult Visit Information Plan of Care Dates 08/09/23 - 10/04/23 Insurance Information [facility] Health Plan; pre- auth required all visits Session Time Visit Start Time 07:30 Visit Stop Time 08:15 Total Visit Minutes 45 Setting Treatment Setting Outpatient Care Visit Type Note Type Initial Evaluation Identification Identification Confirmed Yes Identification Confirmed By Self Goals Treatment Treatment Initiated HEP. Short Term Goals Short Term Goals 1. Woody will be able to return to familiar exercise routine d/t increases in L UE strength: 1a. MMT 5/5 L sh flexion 1b. MMT 5/5 L sh abduction 1c. MMT 5/5 L sh extension 1d. MMT 5/5 L elbow flexion 1e. MMT 5/5 L elbow extension [employer] Superintendent Goals Detention Goals 1. Woody will be modified independent with execution of home exercise program utilizing provided written and visual instructions as needed . 2. Woody will present with increased ability to participate in meaningful activities in a variety of environments as evidenced by the followina. Woody will indicate 1 or less on the Pain Assessment Grid relative to the L shoulder. 2b. Woody will obtain a QuickDASH UE Outcome Measure Score of 10.00 or less. Assessment/Plan Assessment Treatment Assessment Woody is a 58 year-old right hand dominant female referred to outpatient OT secondary to left shoulder pain and right trigger finger. Medical history is significant for back/neck pain w/ diskectomy 1995. 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 Woody reported having outpatient PT in 2014 to address lower back, left shoulder and neck pain/ discomfort. Most recent injury to L sh occurred while sitting on bench w/ subsequent loss of control of DB positioned L hand which led to pulling back of UE ( uncontrolled fly movement pattern demonstrated w/ trunk ext); she has been taking it easy and using 3-4# DB for strengthening of L UE vs 10-12 # DB being used for strengthening of the R UE. Current exercise program includes bicep curls (forearm supination), bent over rows, tricep extension w/ wrist in neutral and skull crushers seated; Woody also utilizes 3 -4# DB when walking and incorporates pilates and engages in regular core routine given h/o back pain/ discomfort. She also executes neck stretches as previously instructed by outpatient PT. She tries to sleep on R side; however, frequently wakes up in sidelying on L. Indication of 3 out of 10 on Pain Assessment Grid relative to L shoulder; indication of 0 out of 10 on Hand/Wrist Pain Assessment Grid relative to R 4th digit. QuickDASH UE Outcome Measure Score = 18.18; QuickDASH UE Work Module Score = 18.75. (+) locking of R 4th digit into flexion w/ need for manual release; denial of wearing of splint and/or treatment for R 4th finger. 135 degrees active pain-free L sh flex vs 160 degrees active pain-free R sh flex; 130 degrees active pain-free L sh abd vs 165 degrees active pain -free R sh abd. 60 degrees active pain-free L ER vs 80 degrees active pain-free R ER. 60 degrees active pain-free L sh ext vs 80 degrees active pain-free R sh ext. Active elbow flex/ext and forearm supination/pronation and wrist flex/ext/RD/UD range of motion pain-free bilaterally and WNL. 4/5 MMT L sh flex vs 5/5 MMT R sh flex; 4/5 MMT L sh abd vs 5/5 MMT R sh abd; 5/ 5 MMT L ER vs 5/5 MMT R ER; 5/ 5 MMT L sh IR vs 5/5 MMT R sh IR; 4+/5 MMT L sh ext vs 5/5 MMT R sh ext; 5/5 MMT L sh add vs 5/5 MMT R sh add. 4/5 MMT L elbow flex vs 5/5 MMT R elbow flex. 4+/5 MMT L elbow ext 5/5 MMT R elbow ext. Woody would likely benefit from outpatient OT to address L UE weakness, L UE pain/ discomfort, development of HEP , discussion re: conservative measures of treatment for R trigger finger (4th digit), and to support her ability to participate in meaningful activities in a variety of environments, including exercise routine. Home Exercise Program 08/09/23 = Instructed in L UE ROM stretch w/ focus on L sh flex and L sh abd utilizing wall; recommendation for 20 to 30 sec hold. Also instructed in modified child pose w/ TT for sh flex ROM and in door stretch for opening up of chest/anterior L sh. Provided w/ TB #3 for standing rows and for bilateral sh ext/row w/ forearm supination to increase targeting of bilateral triceps. Rec 3 x 10 every other day and/or 3 x per week. Instructed in wrapping TB around door knob w/ door closed and w/ option for knotting TB for hand positioning. Plan Length of treatment (weeks) 8 Plan of Care Start Date 08/09/23 Plan of Care End Date 10/04/23 Treatment Frequency Once a Week Therapeutic Contents Active Range of Motion, Adaptive Equipment Education, Client Education,Functional Activities,Home Exercise Program,Joint Protection, Manual Therapy,Education, Neurodevelopment Treatment, Neuromuscular Re-Education, Self-Care,Stretching/ Flexibility Activities, Therapeutic Activities, Therapeutic Exercises, Modalities,Sensory Re- education Modalities As Needed,As Prescribed Additional Types of Modalities Heat/Ice/Contrast bath/ Paraffin/Ultrasound/E-stim Functional Wrist/Hand Scan Hand Side Sensory Assessment Sensory Profile2 OT Outpatient Treatment Note - Adult Start: 08/09/23 08:18 Freq: Status: Active Protocol: Document 11/04/23 08:16 [facility] (Rec: 11/04/23 08:37 [facility] [id number]) OT Outpatient Adult Treatment Note Session Time Visit Start Time 07:35 Visit Stop Time 08:10 Total Visit Minutes 35 Visit Information Plan of Care Dates 10/04/23 - 11/15/23 Insurance Information [facility] Plan; pre- auth required all visits Setting Treatment Setting Outpatient Care Visit Type Note Type Treatment Note General Information General Information Woody is a 58 year-old right hand dominant female referred to outpatient OT secondary to left shoulder pain and right trigger finger. Medical history is significant for back/neck pain w/ diskectomy 1995. Woody works full-time in [employer] ([employer]) actively utilizing an ergonomic workstation w/ regular movement breaks. Woody reported having outpatient PT in 2014 to address lower back, left shoulder and neck pain/ discomfort. Most recent injury to L sh occurred while sitting on bench w/ subsequent loss of control of DB positioned L hand which led to pulling back of UE (uncontrolled fly movement pattern demonstrated w/ trunk ext); she has been taking it easy and using 3-4# DB for strengthening of L UE vs 10-12# DB being used for strengthening of the R UE. - Subjective Identification Type Name Identification Reconciled With Medical Record Observations (+) progress noted relative to L shoulder; Pain Assessment Grid completed w/ indication of 0 out of 10. Waking at night d/t pain has ceased. Improved functional abilities; able to manage bra and UB clothing without discomfort. QuickDASH UE Outcome Measure Score = 0.00; QuickDASH UE Outcome Work Module Score = 0. 00. However, report of increased locking of R 4th finger into flexion as of late ; unable to identify activity or activities that may have led to increased locking of finger into flexion. Hand/ Wrist Pain Assessment Grid was also completed w/ indication of 4 out of 10. Utilizes DB weights w/ adjustable resistance; (+) use of weights when walking. Has returned to prior UE strengthening exercise routine , although, cont to use slightly reduced resistance w/ L UE strengthening (e.g., 5# DB vs 8# DB w/ bicep curls). Patient/Caregiver Compliance with Home Good Exercise Program - Objective Objective Measurements Please refer to below for progress towards meeting established OT goals: Short Term Goals 1. Woody will be able to return to familiar exercise routine d/t increases in L UE strength: 1a. MMT 5/5 L sh abduction * MET 11/04/23 1b. MMT 5/5 L sh extension * MET 11/04/23 1c. MMT 5/5 L elbow flexion * MET 11/04/23 1d. MMT 5/5 L elbow extension *MET 11/04/23 MMT 5/5 L sh flexion. 90% met; 5-/5 MMT 11/04/23 [employer] Superintendent Goals ALL GOALS MET 11/04/23 1. Woody will be modified independent with execution of home exercise program utilizing provided written and visual instructions as needed . 2. Woody will present with increased ability to participate in meaningful activities in a variety of environments as evidenced by the followina. Woody will indicate 1 or less on the Pain Assessment Grid relative to the L shoulder. 2b. Woody will obtain a QuickDASH UE Outcome Measure Score of 10.00 or less. - Exercises 4 Descriptor UEB. x 10 minutes. Seated. Forwards direction. 2 Descriptor UE strengthening. Sh flex. Trunk flex. Thumb up. 2#DB. 3 x 15. Sh hor abd. Trunk flex. Forearm pronation. 2# DB. 3 x 15. Sh ext. Trunk flex. Forearm supination. 2# DB. 2 x 15. Forearm pronation. 2# DB. 1 x 15. Pec press/B sh horizontal abd. Seated. 2# DB. 3 x 15. Bicep curls combined w/ sh press (elbows in/forearms in neutral). 5# DB. 3 x 15. Completed in standing. N/A 10/11/23 Sh hor abd. Trunk flex. Thumb up. 2# DB. 3 x 15. 1 Descriptor L UE ROM Blake pose. Cresent jose modified supine. x 20 hold each side x 2 repetitions each direction. N/A 10/04/[address] Use of door frame. x 20 sec hold each passive stretch. Sh ext. Sh hor abd. Sh hor abd 90/elbow 90 degrees. L sh abd sidelying. x 20 sec hold. Modified threading the needle stretch. TT. Seated. 20 sec. x 1. 'T' supine w/ bilateral knee rock. Supine. 20 sec. x 1 each side. - Assessment Assessment of Improvement Woody has returned to prior UE home strengthening program w/ modifications to resistance as needed; she has met most of her established outpatient OT goals and reports improved functional abilities of L UE relative to UB dressing ( donning/doffing). She denies any questions re: HEP. Despite progress w/ L shoulder , Woody is experiencing increased locking of R 4th finger into flexion with indication of 4 out of 10 on Hand/Wrist Pain Assessment Grid relative to volar/dorsal surfaces of R 4th digit DIP -> prox MPJ. In today's session, Woody was unable to verbally identify activity or activities that may have led to increased locking of finger into flexion. Thus, it is recommended that Woody is referred to UE production control specialist to explore less conservative measures of treatment, as well as referred to CHT to determine if custom orthotic may be beneficial. Home Exercise Program 08/30/23 = Massage to lateral surface of 4th R digit (PIPJ - > MPJ) and palmar surface ( site of fascia thickening). Active and passive hook fist ( gentle vs forceful) w/ avoidance of locking as able into flexion. 08/09/23 = Instructed in L UE ROM stretch w/ focus on L sh flex and L sh abd utilizing wall; recommendation for 20 to 30 sec hold. Also instructed in modified child pose w/ TT for sh flex ROM and in door stretch for opening up of chest/anterior L sh. Provided w/ TB #3 for standing rows and for bilateral sh ext/row w/ forearm supination to increase targeting of bilateral triceps. Rec 3 x 10 every other day and/or 3 x per week. Instructed in wrapping TB around door knob w/ door closed and w/ option for knotting TB for hand positioning. - Plan Therapy Recommendations Discharge from Occupational Therapy Additional Therapy Recommendations Referral to CHT and Orthopedic UE specialist
== END 2023-11-19 14:30 | disposition home or self-care (01) ==
LOC: OT 07:30
PROVIDERS: Family Provider Internal Medicine; PCP Internal Medicine; Referring Provider Internal Medicine; Visit Provider Internal Medicine
DX: M25.512 Pain in left shoulder (principal); M65.341 Trigger finger, right ring finger; R53.1 Weakness
CPT/HCPCS: 97110; 97165

== ENCOUNTER → 2024-03-03 06:47 | Outpatient (CLI) | payer OTHER, SELFPAY ==
--- NOTE | 2024-03-03 06:48 | DI.US.S_ITS ---
PROCEDURE: US ABDOMEN LIMITED INDICATIONS: LEFT UPPER QUAD PAIN / NUMBNESS OF SKIN TECHNIQUE: Real-time focused scanning was performed of the abdomen, with image documentation. COMPARISON: None. FINDINGS: Left kidney measures 10.3 cm. No obstruction. No free fluid. IMPRESSION: Unremarkable exam within visualized portions. Dictated by: Cathleen Westbrook M.D. on 03/03/2024 at 10:08 Approved by: Cathleen Westbrook M.D. on 03/03/2024 at 10:08
== END ==
LOC: US 06:47
PROVIDERS: Family Provider Internal Medicine; PCP Internal Medicine; Referring Provider Internal Medicine; Visit Provider Internal Medicine
DX: R20.0 Anesthesia of skin (principal); R20.2 Paresthesia of skin; R10.12 Left upper quadrant pain
CPT/HCPCS: 76705

== ENCOUNTER → 2024-10-11 12:44 | Outpatient (CLI) | payer OTHER, SELFPAY ==
--- NOTE | 2024-10-11 12:45 | DI.MG.S_ITS ---
BILATERAL DIGITAL SCREENING MAMMOGRAM 3D/2D WITH CAD: 10/11/2024 CLINICAL: Routine screening. Family history of breast cancer. Comparison is made to exams dated: 09/21/2023 mammogram, 08/31/2022 mammogram, and 07/21/2021 mammogram - [facility]. There are scattered areas of fibroglandular density (category b / 25%-50% glandular tissue). Current study was also evaluated with a Computer Aided Detection (CAD) system. No significant masses, calcifications, or other findings are seen in either breast. There has been no significant interval change. IMPRESSION: NEGATIVE There is no mammographic evidence of malignancy. A 1 year screening mammogram is recommended. Based on the Tyrer Cuzick model (a risk assessment model) the patient's lifetime risk is 19.0% and her 10 year risk is 6.8%. According to the ACR, ACS, and NCCN guidelines, an annual breast MRI exam along with mammogram is recommended if the patient's lifetime risk is 20% or greater. This exam was interpreted at Station ID: [id number]. NOTE: For mammograms, a report in lay terms will be sent to the patient. Approximately 15% of breast malignancies will not be visualized mammographically. In the management of a palpable breast mass, a negative mammogram must not discourage biopsy of a clinically suspicious lesion. Electronically Signed By: Tamara dumont/debora:10/11/2024 16:26:59 letter sent: Normal Exam ACR BI-RADS Category 1: Negative
== END ==
PROVIDERS: Family Provider Internal Medicine; PCP Internal Medicine; Referring Provider Internal Medicine; Visit Provider Internal Medicine
DX: Z12.31 Encounter for screening mammogram for malignant neoplasm of breast (principal); Z80.3 Family history of malignant neoplasm of breast
CPT/HCPCS: 77063; 77067

== ENCOUNTER → 2024-11-24 08:52 | Outpatient (CLI) | payer OTHER, SELFPAY ==
[2024-11-24 10:10] LABS: Add Manual Diff / Slide Review NO; Basophils Absolute Auto 0 /uL (0-100); Basophils Percent Auto 0.8 % (0-2); Eosinophils Absolute Auto 100 /uL (0-450); Hematocrit 41.8 % (36-46); Hemoglobin 13.9 g/dL (12.0-16.0); Lymphocytes Absolute Auto 1500 /uL (1100-4500); Lymphocytes Percent Auto 33.6 % (25-40); Mean Corpuscular HGB Conc 33.2 % (30-36); Mean Corpuscular Hemoglobin 31.1 PG (26-34); Mean Corpuscular Volume 93.5 fL (80-100); Monocytes Absolute Auto 300 /uL (0-900); Monocytes Percent Auto 6.8 % (3-14); Neutrophils Absolute Auto 2500 /uL (1500-7000); Neutrophils Percent Auto 56.8 % (50-75); Platelet Count 241 X10^3/uL (150-400); Red Blood Cell Count 4.47 X10^6/uL (4.0-5.2); Red Cell Distribution Width 13.5 % (11.6-14.8); White Blood Cell Count 4.5 X10^3/uL (4.5-11.0)
[2024-11-24 10:24] LABS: INR 1.1 (0.9-1.3); Prothrombin Time 12.2 SECONDS (9.4-12.5)
[2024-11-24 10:39] LABS: Alanine Aminotransferase 28 IU/L (<35); Albumin Globulin Ratio 1.9 (1.0-2.8); Alkaline Phosphatase 68 U/L (38-126); Aspartate Aminotransferase 43 IU/L (14-36); BUN Creatinine Ratio 15.6 (6-22); Bilirubin Total 1.4 mg/dL (0.2-1.3); Blood Urea Nitrogen 14 mg/dL (7-17); Calcium 10.3 mg/dL (8.4-10.2); Carbon Dioxide 29 mmol/L (22-32); Chloride 103 mmol/L (98-107); Estimated Glomerular Filt Rate > 60 mL/min (>60); Globulin 2.6 g/dL (1.7-4.1); Glucose 89 mg/dL (70-100); HEMOLYSIS < 15 (0-50); Potassium 5.1 mmol/L (3.4-5.1); Sodium 138 mmol/L (137-145); Total Protein 7.6 g/dL (6.3-8.2)
== END ==
LOC: LAB 09:00
PROVIDERS: Family Provider Internal Medicine; PCP Family Medicine; Referring Provider Internal Medicine Cardiovascular Disease; Visit Provider Internal Medicine Cardiovascular Disease
DX: I47.29 Other ventricular tachycardia (principal)
CPT/HCPCS: 36415; 80053; 83735; 85025; 85610

== ENCOUNTER → 2025-10-12 15:57 | Outpatient (CLI) | payer OTHER, SELFPAY ==
--- NOTE | 2025-10-12 15:58 | DI.MG.S_ITS ---
MM screening mammo BI: 10/12/2025. BI-RADS: 0 CLINICAL: 60-year old female for bilateral screening mammogram. Tyrer-Cuzick lifetime risk of 16.2%. Current reported family history of breast cancer: maternal grandmother and sister. The patient reports testing negative for BRCA gene mutation. PRIOR EXAMS 10/11/2024, 09/21/2023, 08/31/2022, 07/21/2021. MAMMOGRAPHY TECHNIQUE: 2D and 3D (tomosynthesis) digital mammographic views obtained, with additional images as needed for full coverage. Current study was also evaluated with a Computer Aided Detection (CAD) system. DENSITY B. There are scattered areas of fibroglandular density. MAMMOGRAPHY FINDINGS Right: Calcifications needing additional imaging evaluation. Left: No suspicious mass, asymmetry, microcalcification, or other abnormality seen. IMPRESSION: Right * Incomplete - calcification needing additional imaging evaluation. Left * No evidence of malignancy. RECOMMENDATIONS Right * Further evaluation with diagnostic mammography. OVERALL ASSESSMENT CATEGORY BI-RADS-0: Incomplete - Need Additional Imaging Evaluation. ELECTRONICALLY SIGNED: Roldan Dodd M.D. on 10/14/2025 at 09:05:35 PM PT Interpreting Station ID: [id number]
== END ==
LOC: MAMMO 15:58
PROVIDERS: Family Provider Internal Medicine; PCP Registered Nurse; Referring Provider Registered Nurse; Visit Provider Registered Nurse
DX: Z12.31 Encounter for screening mammogram for malignant neoplasm of breast (principal); Z80.3 Family history of malignant neoplasm of breast
CPT/HCPCS: 77063; 77067

== ENCOUNTER → 2025-10-29 09:24 | Outpatient (CLI) | payer OTHER, SELFPAY ==
--- NOTE | 2025-10-29 09:26 | DI.MG.S_ITS ---
MM diagnostic mammo unilat RT: 10/29/2025. BI-RADS: 4 CLINICAL: 60-year old female for right diagnostic mammogram that is a recall from screening on 10/12/2025. Tyrer-Cuzick lifetime risk of 16.2%. Current reported family history of breast cancer: maternal grandmother and sister. The patient reports testing negative for BRCA gene mutation. PRIOR EXAMS 10/12/2025, 10/11/2024, 09/21/2023, 08/31/2022, 07/21/2021. MAMMOGRAPHY TECHNIQUE: 2D and 3D (tomosynthesis) digital mammographic views obtained, with additional images as needed for full coverage. Current study was also evaluated with a Computer Aided Detection (CAD) system. DENSITY Right: B. There are scattered areas of fibroglandular density. MAMMOGRAPHY FINDINGS Right: Lower Outer at 8:00, Anterior depth, measuring 0.4cm: Correlating with findings on screening mammogram there are grouped round calcifications that have increased in size and appearance. IMPRESSION: Right (Calcification): Lower Outer at 8:00, Anterior depth, measuring 0.4cm * Suspicious findings with likelihood of malignancy. RECOMMENDATIONS Right: Lower Outer at 8:00, Anterior depth * Stereotactic-guided biopsy for further evaluation. COMMENTS: Findings and recommendations were conveyed to the patient during today's evaluation by Dr. Castillo. OVERALL ASSESSMENT CATEGORY BI-RADS-4: Suspicious. PRELIMINARILY ELECTRONICALLY SIGNED: Tara Boswell M.D. on 10/29/2025 at 12:49:09 PM PT ELECTRONICALLY SIGNED: Tara Boswell M.D. on 10/29/2025 at 12:49:21 PM PT Interpreting Station ID: [id number]
== END ==
LOC: MAMMO 09:26
PROVIDERS: Family Provider Internal Medicine; PCP Registered Nurse; Referring Provider Registered Nurse; Visit Provider Registered Nurse
DX: R92.8 Other abnormal and inconclusive findings on diagnostic imaging of breast (principal); R92.1 Mammographic calcification found on diagnostic imaging of breast; R92.321 Mammographic fibroglandular density, right breast; Z80.3 Family history of malignant neoplasm of breast
CPT/HCPCS: 77065; G0279